=== PATIENT | male | born 1970 | race African-American/Black ===

== ENCOUNTER 2016-12-05 19:20 | Emergency (ER) | payer BC ==
[2016-12-05] MEDS ORDERED: Diphtheria,Pertussis(Acell),Tetanus Vaccine 0.5 ML Syringe IM ONE (19:52)
[2016-12-05] MEDS ORDERED: HYDROmorphone 2 MG/ML Syringe IM ONE (20:29)
[2016-12-05] MEDS ORDERED: Ondansetron 4 MG Tab.DIS PO PRN (20:34)
[2016-12-05] MEDS ORDERED: Lidocaine 1% 4 ML ONE (20:42)
--- NOTE | 2016-12-05 20:46 | EDM.PDOC ---
ED HPI GENERAL MEDICAL PROBLEM - General Chief Complaint: Laceration Stated Complaint: FELLED BACK Time Seen by Provider: 12/05/16 19:34 Source of Information: Reports: Patient History Limitations: Reports: No Limitations - History of Present Illness INITIAL COMMENTS - FREE TEXT/NARRATIVE: History of present illness: 46-year-old male presenting with acute trauma to left axillary region. Patient fell on a piece of reverse taking up and has a puncture wound in his left axilla. Review of systems: As per history of present illness and below otherwise all systems reviewed and negative. Past medical history: As per history of present illness and as reviewed below otherwise noncontributory. Surgical history: As per history of present illness and as reviewed below otherwise noncontributory. Social history: No reported history of drug or alcohol abuse. Family history: As per history of present illness and as reviewed below otherwise noncontributory. Physical exam: HEENT: Atraumatic, normocephalic, pupils reactive, negative for conjunctival pallor or scleral icterus, mucous membranes moist, throat clear, neck supple, nontender, trachea midline. Lungs: Clear to auscultation, breath sounds equal bilaterally, chest nontender. Heart: S1S2, regular, negative for clicks, rubs, or JVD. Abdomen: Soft, nondistended, nontender. Negative for masses or hepatosplenomegaly. Negative for costovertebral tenderness. Pelvis: Stable nontender. Genitourinary: Deferred. Rectal: Deferred. Extremities: Atraumatic, negative for cords or calf pain. Neurovascular unremarkable. Neuro: Awake, alert, oriented. Cranial nerves II through XII unremarkable. Cerebellum unremarkable. Motor and sensory unremarkable throughout. Exam nonfocal. Skin: Puncture wound to left axilla Area cleaned and irrigated well with edges approximated well and Steri-Strips placed to relieve tension on puncture wound. Patient educated on treatment a puncture wound and what signs to look for in regards to any infection Diagnostics: [] Therapeutics: [] Impression: [Puncture wound] Plan: [Tetanus, antibiotics, pain medicine] Definitive disposition and diagnosis as appropriate pending reevaluation and review of above. - Related Data Allergies Allergy/AdvReac Type Severity Reaction Status Date / Time No Known Allergies Allergy Verified 12/05/16 19:46 Home Meds: Home Meds Cephalexin [Keflex] 500 mg PO QID #40 capsule 12/05/16 [Rx] Past Medical History HEENT History: Reports: None Cardiovascular History: Reports: None Respiratory History: Reports: None Gastrointestinal History: Reports: None Genitourinary History: Reports: None Musculoskeletal History: Reports: None Neurological History: Reports: None Psychiatric History: Reports: None Endocrine/Metabolic History: Reports: None Hematologic History: Reports: None Immunologic History: Reports: None Oncologic (Cancer) History: Reports: None Dermatologic History: Reports: None - Infectious Disease History Infectious Disease History: Reports: Chicken Pox - Past Surgical History Head Surgeries/Procedures: Reports: None Social & Family History - Family History Family Medical History: Noncontributory - Tobacco Use Smoking Status *Q: Current Some Day Smoker Years of Tobacco use: 10 Packs/Tins Daily: 1 - Caffeine Use Caffeine Use: Reports: None - Recreational Drug Use Recreational Drug Use: No ED ROS GENERAL - Review of Systems Review Of Systems: See Below (History of present illness) ED EXAM, SKIN/RASH Exam: See Below (History of present illness) Course - Vital Signs Last Recorded V/S: Last Vital Signs Temp 36.9 C 12/05/16 19:46 Pulse 78 12/05/16 19:46 Resp 16 12/05/16 19:46 BP 125/72 12/05/16 19:46 Pulse Ox 98 12/05/16 19:46 - Orders/Labs/Meds Orders: Active Orders 24 hr Category Date Time Status Vaccines to be Administered [RC] PER UNIT ROUTINE Care 12/05/16 19:52 Active Ondansetron [Zofran ODT] Med 12/05/16 20:34 Ordered 8 mg PO ONETIME PRN Meds: Medications Discontinued Medications Generic Name Dose Route Start Last Admin Trade Name Freq PRN Reason Stop Dose Admin Ceftriaxone Sodium 2,000 mg/ 0 mg 12/05/16 20:29 Lidocaine HCl 2.1 ml IM 12/05/16 20:30 ONETIME ONE Diphtheria/Tetanus/Acell Pertussis 0.5 ml 12/05/16 19:52 12/05/16 20:14 Adacel IM 12/05/16 19:53 0.5 ml .ONCE ONE Administration Hydromorphone HCl 2 mg 12/05/16 20:29 Dilaudid IM 12/05/16 20:30 ONETIME ONE Departure - Departure Time of Disposition: 20:46 Disposition: Home, Self-Care 01 Condition: Good Clinical Impression: Puncture wound - injury - Discharge Information Instructions: Puncture Wound, [id number] Forms: ED Department Discharge Additional Instructions: The following information is given to patients seen in the emergency department who are being discharged to home. This information is to outline your options for follow-up care. We provide all patients seen in our emergency department with a follow-up referral. The need for follow-up, as well as the timing and circumstances, are variable depending upon the specifics of your emergency department visit. If you don't have a primary care physician on staff, we will provide you with a referral. We always advise you to contact your personal physician following an emergency department visit to inform them of the circumstance of the visit and for follow-up with them and/or the need for any referrals to a consulting specialist. The emergency department will also refer you to a specialist when appropriate. This referral assures that you have the opportunity for follow-up care with a specialist. All of these measure are taken in an effort to provide you with optimal care, which includes your follow-up. Under all circumstances we always encourage you to contact your private physician who remains a resource for coordinating your care. When calling for follow-up care, please make the office aware that this follow-up is from your recent emergency room visit. If for any reason you are refused follow-up, please contact the [facility] Emergency Department at and asked to speak to the emergency department charge nurse. Take medication as directed Primary care 1-2 days Return to ED as needed as discussed [facility] [address] [place] [id number] - My Orders Last 24 Hours: My Active Orders 12/05/16 19:52 Vaccines to be Administered [RC] PER UNIT ROUTINE 12/05/16 20:34 Ondansetron [Zofran ODT] 8 mg PO ONETIME PRN - Assessment/Plan Last 24 Hours: My Active Orders 12/05/16 19:52 Vaccines to be Administered [RC] PER UNIT ROUTINE 12/05/16 20:34 Ondansetron [Zofran ODT] 8 mg PO ONETIME PRN
[2016-12-05] MEDS: cefTRIAXone 2,000 MG, Lidocaine 1% 2.1 ML IM ONE ×4 (20:53→21:22)
[2016-12-05] MEDS ORDERED: cefTRIAXone 2,000 MG in Lidocaine 1% 4 ML IM ONE (21:00)
[2016-12-05 21:29] VITALS: BP 120/70
== END 2016-12-05 21:10 | disposition home or self-care (01) ==
LOC: MW.ED 19:20
DX: S41.132A Puncture wound without foreign body of left upper arm, initial encounter (principal); F17.210 Nicotine dependence, cigarettes, uncomplicated; W01.118A Fall on same level from slipping, tripping and stumbling with subsequent striking against other sharp object, initial encounter; Z23 Encounter for immunization
CPT/HCPCS: 90471; 90715; 96372; 99282; J0696; J1170; 99283

== ENCOUNTER 2017-10-05 20:53 | Emergency (ER) | payer SELFPAY ==
[2017-10-06 02:24] VITALS: BP 120/60
== END 2017-10-05 21:45 | disposition home or self-care (01) ==
LOC: MW.ED 20:53
DX: L03.116 Cellulitis of left lower limb (principal)
CPT/HCPCS: 99283

== ENCOUNTER 2017-10-08 21:57 | Emergency (ER) | payer BC ==
[2017-10-08] MEDS ORDERED: Lidocaine 1% 20 ML MDV INJECT ONE (22:08)
--- NOTE | 2017-10-08 22:26 | EDM.PDOC ---
ED HPI GENERAL MEDICAL PROBLEM - General Chief Complaint: Skin Complaint Stated Complaint: INFECTION ON RIGHT LEG Time Seen by Provider: 10/08/17 22:08 - History of Present Illness INITIAL COMMENTS - FREE TEXT/NARRATIVE: HISTORY AND PHYSICAL: History of present illness: Patient's 47-year-old male was seen past Thursday for cellulitis right leg and now his increased pain swelling and what appears to be an abscess he was prescribed Keflex he's had no fever chills nausea vomiting or other complaints Review of systems: As per history of present illness and below otherwise all systems reviewed and negative. Past medical history: As per history of present illness and as reviewed below otherwise noncontributory. Surgical history: As per history of present illness and as reviewed below otherwise noncontributory. Social history: No reported history of drug or alcohol abuse. Family history: As per history of present illness and as reviewed below otherwise noncontributory. Physical exam: HEENT: Atraumatic, normocephalic, pupils reactive, negative for conjunctival pallor or scleral icterus, mucous membranes moist, throat clear, neck supple, nontender, trachea midline. Lungs: Clear to auscultation, breath sounds equal bilaterally, chest nontender. Heart: S1S2, regular, negative for clicks, rubs, or JVD. Abdomen: Soft, nondistended, nontender. Negative for masses or hepatosplenomegaly. Negative for costovertebral tenderness. Pelvis: Stable nontender. Genitourinary: Deferred. Rectal: Deferred. Extremities: Patient has an area on his right leg approximately 3 cm of erythema with an central area of fluctuance there is some minimal induration and tenderness to palpation neurovascular exams unremarkable. Neuro: Awake, alert, oriented. Cranial nerves II through XII unremarkable. Cerebellum unremarkable. Motor and sensory unremarkable throughout. Exam nonfocal. Diagnostics: None Therapeutics: Patient was anesthetized LIDOCAINE WITHOUT EPINEPHRINE INCISION AND DRAINAGE WAS ACCOMPLISHED WITH 11 BLADE SCALPEL APPROXIMATELY 2 ML OF LUCHO PUS WAS PACKED WITH QUARTER-INCH IODOFORM GAUZE PATIENT TOLERATED PROCEDURE WELL DRESSING WAS APPLIED Impression: #1 cutaneous abscess right leg status post incision and drainage Definitive disposition and diagnosis as appropriate pending reevaluation and review of above. - Related Data Allergies Allergy/AdvReac Type Severity Reaction Status Date / Time No Known Allergies Allergy Verified 10/08/17 22:00 Home Meds: Home Meds . [No Known Home Meds] 10/06/17 [History] Past Medical History - Past Health History Medical/Surgical History: Denies Medical/Surgical History HEENT History: Reports: None Cardiovascular History: Reports: None Respiratory History: Reports: None Gastrointestinal History: Reports: None Genitourinary History: Reports: None Musculoskeletal History: Reports: None Neurological History: Reports: None Psychiatric History: Reports: None Endocrine/Metabolic History: Reports: None Hematologic History: Reports: None Immunologic History: Reports: None Oncologic (Cancer) History: Reports: None Dermatologic History: Reports: None - Infectious Disease History Infectious Disease History: Reports: Chicken Pox - Past Surgical History Head Surgeries/Procedures: Reports: None Social & Family History - Family History Family Medical History: Noncontributory - Caffeine Use Caffeine Use: Reports: None ED ROS GENERAL - Review of Systems Review Of Systems: ROS reveals no pertinent complaints other than HPI. ED EXAM, SKIN/RASH Exam: See Below (See dictation) Course - Vital Signs Last Recorded V/S: Last Vital Signs Temp 36.6 C 10/08/17 22:00 Pulse 78 10/08/17 22:00 Resp 16 10/08/17 22:00 BP 118/79 10/08/17 22:00 Pulse Ox 95 10/08/17 22:00 - Orders/Labs/Meds Meds: Medications Discontinued Medications Generic Name Dose Route Start Last Admin Trade Name Radha PRN Reason Stop Dose Admin Lidocaine HCl Confirm 10/08/17 22:10 Xylocaine-Mpf 1% Administered 10/08/17 22:11 Dose 5 mls @ as directed .ROUTE .STK-MED ONE Lidocaine HCl 20 ml 10/08/17 22:08 10/08/17 22:15 Xylocaine 1% INJECT 10/08/17 22:09 Not Given ONETIME ONE Lidocaine HCl 5 ml 10/08/17 22:14 10/08/17 22:17 Xylocaine-Mpf 1% INJECT 10/08/17 22:15 5 ml ONETIME ONE Administration Departure - Departure Time of Disposition: 22:25 Disposition: Home, Self-Care 01 Condition: Good Clinical Impression: Abscess - Discharge Information Referrals: PCP,None [Primary Care Provider] - Additional Instructions: The following information is given to patients seen in the emergency department who are being discharged to home. This information is to outline your options for follow-up care. We provide all patients seen in our emergency department with a follow-up referral. The need for follow-up, as well as the timing and circumstances, are variable depending upon the specifics of your emergency department visit. If you don't have a primary care physician on staff, we will provide you with a referral. We always advise you to contact your personal physician following an emergency department visit to inform them of the circumstance of the visit and for follow-up with them and/or the need for any referrals to a consulting specialist. The emergency department will also refer you to a specialist when appropriate. This referral assures that you have the opportunity for followup care with a specialist. All of these measure are taken in an effort to provide you with optimal care, which includes your followup. Under all circumstances we always encourage you to contact your private physician who remains a resource for coordinating your care. When calling for followup care, please make the office aware that this follow-up is from your recent emergency room visit. If for any reason you are refused follow-up, please contact the [facility] emergency department at and asked to speak to the emergency department charge nurse. Stop Keflex start Bactrim and clindamycin as prescribed follow-up 24-40 hours packing removal reevaluation return as needed as discussed
[2017-10-08 22:42] VITALS: BP 112/70
== END 2017-10-08 22:35 | disposition home or self-care (01) ==
LOC: MW.ED 21:57
DX: L02.415 Cutaneous abscess of right lower limb (principal)
CPT/HCPCS: 99282; 99283

== ENCOUNTER 2017-10-10 21:53 | Emergency (ER) | payer BC ==
--- NOTE | 2017-10-10 22:08 | EDM.PDOC ---
ED HPI GENERAL MEDICAL PROBLEM - General Chief Complaint: Wound Recheck Stated Complaint: PACKING TO RIGHT LEG CHANGED Time Seen by Provider: 10/10/17 22:05 - History of Present Illness INITIAL COMMENTS - FREE TEXT/NARRATIVE: HISTORY AND PHYSICAL: History of present illness: Patient's 47-year-old male presents with concern of wound check patient incision and drainage of an abscess of his right lower extremity shaking was packed. He's been doing well he's been taking his antibiotics as prescribed and has no other complaints Review of systems: As per history of present illness and below otherwise all systems reviewed and negative. Past medical history: As per history of present illness and as reviewed below otherwise noncontributory. Surgical history: As per history of present illness and as reviewed below otherwise noncontributory. Social history: No reported history of drug or alcohol abuse. Family history: As per history of present illness and as reviewed below otherwise noncontributory. Physical exam: Extremities right leg wound has packing in place as was removed there is no discharge there is minimal erythema improved from yesterday and no induration. Patient states it feels much better. Diagnostics: None Therapeutics: None Impression: #1 wound check status post incision and drainage right lower extremity with packing removal Definitive disposition and diagnosis as appropriate pending reevaluation and review of above. - Related Data Allergies Allergy/AdvReac Type Severity Reaction Status Date / Time No Known Allergies Allergy Verified 10/08/17 22:00 Home Meds: Home Meds . [No Known Home Meds] 10/06/17 [History] Past Medical History - Past Health History Medical/Surgical History: Denies Medical/Surgical History HEENT History: Reports: None Cardiovascular History: Reports: None Respiratory History: Reports: None Gastrointestinal History: Reports: None Genitourinary History: Reports: None Musculoskeletal History: Reports: None Neurological History: Reports: None Psychiatric History: Reports: None Endocrine/Metabolic History: Reports: None Hematologic History: Reports: None Immunologic History: Reports: None Oncologic (Cancer) History: Reports: None Dermatologic History: Reports: None - Infectious Disease History Infectious Disease History: Reports: Chicken Pox - Past Surgical History Head Surgeries/Procedures: Reports: None Social & Family History - Family History Family Medical History: Noncontributory - Caffeine Use Caffeine Use: Reports: None ED ROS GENERAL - Review of Systems Review Of Systems: ROS reveals no pertinent complaints other than HPI. ED EXAM, GENERAL - Physical Exam Exam: See Below (See dictation) Departure - Departure Time of Disposition: 22:07 Disposition: Home, Self-Care 01 Condition: Good Clinical Impression: Wound check, abscess - Discharge Information Referrals: PCP,None [Primary Care Provider] - Additional Instructions: The following information is given to patients seen in the emergency department who are being discharged to home. This information is to outline your options for follow-up care. We provide all patients seen in our emergency department with a follow-up referral. The need for follow-up, as well as the timing and circumstances, are variable depending upon the specifics of your emergency department visit. If you don't have a primary care physician on staff, we will provide you with a referral. We always advise you to contact your personal physician following an emergency department visit to inform them of the circumstance of the visit and for follow-up with them and/or the need for any referrals to a consulting specialist. The emergency department will also refer you to a specialist when appropriate. This referral assures that you have the opportunity for followup care with a specialist. All of these measure are taken in an effort to provide you with optimal care, which includes your followup. Under all circumstances we always encourage you to contact your private physician who remains a resource for coordinating your care. When calling for followup care, please make the office aware that this follow-up is from your recent emergency room visit. If for any reason you are refused follow-up, please contact the [facility] emergency department at and asked to speak to the emergency department charge nurse. Continue antibiotics as prescribed and follow-up as needed as discussed
[2017-10-10 22:11] VITALS: BP 139/80
== END 2017-10-10 22:30 | disposition home or self-care (01) ==
LOC: MW.ED 21:53
DX: Z48.817 Encounter for surgical aftercare following surgery on the skin and subcutaneous tissue (principal)
CPT/HCPCS: 99282

== ENCOUNTER 2018-05-11 11:31 | Emergency (ER) | payer BC ==
--- NOTE | 2018-05-11 11:52 | EDM.PDOC ---
ED HPI GENERAL MEDICAL PROBLEM - General Chief Complaint: Laceration Stated Complaint: CUT ON HAND Time Seen by Provider: 05/11/18 11:49 Source of Information: Reports: Patient History Limitations: Reports: No Limitations - History of Present Illness INITIAL COMMENTS - FREE TEXT/NARRATIVE: HISTORY AND PHYSICAL: History of present illness: Patient is a 48-year-old male here with complaint of laceration. He states his right palm was pinched between 2 pieces of steel just prior to arrival to the ED. Denies any distal pain, numbness, tingling or weakness. Last tetanus was approximately 1 year ago. Review of systems: As per history of present illness and below otherwise all systems reviewed and negative. Past medical history: As per history of present illness and as reviewed below otherwise noncontributory. Surgical history: As per history of present illness and as reviewed below otherwise noncontributory. Social history: No reported history of drug or alcohol abuse. Family history: As per history of present illness and as reviewed below otherwise noncontributory. Physical exam: General: Patient sitting comfortably in no acute distress and nontoxic appearing HEENT: Atraumatic, normocephalic, pupils reactive, negative for conjunctival pallor or scleral icterus, mucous membranes moist, throat clear, neck supple, nontender, trachea midline. No meningeal signs. Lungs: Clear to auscultation, breath sounds equal bilaterally, chest nontender. Heart: S1S2, regular, negative for clicks, rubs, or overt murmur. Extremities: 2 cm jagged laceration to the right thenar eminence. Mostly superficial with a small area that does go into the subcutaneous. negative for cords or calf pain. Neurovascular unremarkable. Neuro: Awake, alert, oriented. Cranial nerves II through XII unremarkable. Cerebellum unremarkable. Motor and sensory unremarkable throughout. Exam nonfocal. Notes: Diagnostics: None Therapeutics: Laceration repair Prescriptions: None Impression: Laceration Plan: 1. Keep the area clean and dry 2. Follow up for suture removal in 7-10 days 3. Return to ED as needed as discussed Definitive disposition and diagnosis as appropriate pending reevaluation and review of above. - Related Data Allergies Allergy/AdvReac Type Severity Reaction Status Date / Time No Known Allergies Allergy Verified 05/11/18 11:44 Home Meds: Home Meds . [No Known Home Meds] 10/06/17 [History] Past Medical History - Past Health History Medical/Surgical History: Denies Medical/Surgical History HEENT History: Reports: None Cardiovascular History: Reports: None Respiratory History: Reports: None Gastrointestinal History: Reports: None Genitourinary History: Reports: None Musculoskeletal History: Reports: None Neurological History: Reports: None Psychiatric History: Reports: None Endocrine/Metabolic History: Reports: None Hematologic History: Reports: None Immunologic History: Reports: None Oncologic (Cancer) History: Reports: None Dermatologic History: Reports: None - Infectious Disease History Infectious Disease History: Reports: Chicken Pox - Past Surgical History Head Surgeries/Procedures: Reports: None HEENT Surgical History: Reports: None Cardiovascular Surgical History: Reports: None Respiratory Surgical History: Reports: None GI Surgical History: Reports: None Male Surgical History: Reports: None Endocrine Surgical History: Reports: None Neurological Surgical History: Reports: None Musculoskeletal Surgical History: Reports: None Oncologic Surgical History: Reports: None Dermatological Surgical History: Reports: None Social & Family History - Family History Family Medical History: Noncontributory - Tobacco Use Smoking Status *Q: Current Every Day Smoker Years of Tobacco use: 20 Packs/Tins Daily: 0.1 - Caffeine Use Caffeine Use: Reports: None - Recreational Drug Use Recreational Drug Use: No ED ROS GENERAL - Review of Systems Review Of Systems: ROS reveals no pertinent complaints other than HPI. ED EXAM, SKIN/RASH Exam: See Below (see dictation) ED SKIN PROCEDURES - Laceration/Wound Repair Right Anterior Hand Lac/Wound length In cm: 2.5 Appearance: Superficial, Subcutaneous, Irregular, Clean Distal NVT: Neuro & Vascular Intact, No Tendon Injury Anesthetic Type: Local Local Anesthesia - Lidocaine (Xylocaine): 1% Plain Local Anesthetic Volume: Other (6) Skin Prep: Chlorhexidine (Hibiciens), Saline Saline Irrigation (cc's): 250 Exploration/Debridement/Repair: Wound Explored, In a Bloodless Field, Explored to Base Closed with: Sutures Suture Size: 4-0 # of Sutures: 7 Suture Type: Nylon, Interrupted, Simple Course - Vital Signs Last Recorded V/S: Last Vital Signs Temp 96.7 F 05/11/18 11:44 Pulse 78 05/11/18 11:44 Resp 18 05/11/18 11:44 BP 139/75 05/11/18 11:44 Pulse Ox 98 05/11/18 11:44 - Orders/Labs/Meds Meds: Medications Discontinued Medications Generic Name Dose Route Start Last Admin Trade Name Radha PRN Reason Stop Dose Admin Lidocaine HCl 5 ml 05/11/18 11:35 Xylocaine-Mpf 1% INJECT 05/11/18 11:36 ONETIME ONE Lidocaine HCl 5 ml 05/11/18 12:03 Xylocaine-Mpf 1% INJECT 05/11/18 12:04 ONETIME ONE Departure - Departure Time of Disposition: 12:15 Disposition: Home, Self-Care 01 Condition: Good Clinical Impression: Laceration - Discharge Information Forms: ED Department Discharge Additional Instructions: The following information is given to patients seen in the emergency department who are being discharged to home. This information is to outline your options for follow-up care. We provide all patients seen in our emergency department with a follow-up referral. The need for follow-up, as well as the timing and circumstances, are variable depending upon the specifics of your emergency department visit. If you don't have a primary care physician on staff, we will provide you with a referral. We always advise you to contact your personal physician following an emergency department visit to inform them of the circumstance of the visit and for follow-up with them and/or the need for any referrals to a consulting specialist. The emergency department will also refer you to a specialist when appropriate. This referral assures that you have the opportunity for follow-up care with a specialist. All of these measure are taken in an effort to provide you with optimal care, which includes your follow-up. Under all circumstances we always encourage you to contact your private physician who remains a resource for coordinating your care. When calling for follow-up care, please make the office aware that this follow-up is from your recent emergency room visit. If for any reason you are refused follow-up, please contact the [facility] Emergency Department at and asked to speak to the emergency department charge nurse. 1. Keep the area clean and dry 2. Follow up for suture removal in 7-10 days 3. Return to ED as needed as discussed
[2018-05-11 12:47] VITALS: BP 100/57
== END 2018-05-11 12:40 | disposition home or self-care (01) ==
LOC: MW.ED 11:31
DX: S61.411A Laceration without foreign body of right hand, initial encounter (principal); F17.210 Nicotine dependence, cigarettes, uncomplicated
CPT/HCPCS: 99282

== ENCOUNTER 2018-05-18 15:17 | Emergency (ER) | payer BC ==
[2018-05-18 15:48] VITALS: BP 136/80
== END 2018-05-18 15:42 | disposition left against medical advice (07) ==
LOC: MW.ED 15:17
DX: Z53.21 Procedure and treatment not carried out due to patient leaving prior to being seen by health care provider (principal)

== ENCOUNTER 2022-07-20 23:11 | Emergency (ER) | payer BC ==
[2022-07-20] MEDS ORDERED: Sodium Chloride 0.9% 10 ML Syringe FLUSH PRN (23:22)
[2022-07-20] MEDS ORDERED: Sodium Chloride 0.9% 2.5 ML Syringe FLUSH PRN (23:22)
[2022-07-20] MEDS ORDERED: Ketorolac 30 MG/ML SDV IVPUSH ONE (23:22)
[2022-07-20 23:57] LABS: CARBON DIOXIDE,CO2 27.1 mmol/L (21.0-32.0); POTASSIUM,K 3.9 mmol/L (3.5-5.1)
[2022-07-21] MEDS ORDERED: Diazepam 5 MG Tab PO ONE (00:02)
[2022-07-21 00:13] VITALS: BP 110/70; PULSE 72
== END 2022-07-21 00:12 | disposition home or self-care (01) ==
LOC: MW.ED 23:11
DX: R25.2 Cramp and spasm (principal)
CPT/HCPCS: 36415; 80053; 83735; 85025; 96374; 99284; A9270; J1885; J3490